=== PATIENT | male | born 1945 | race Caucasian/White ===

== ENCOUNTER 2020-10-27 07:57 | Day surgery (SDC) | payer MEDICARE, BC, OTHER ==
[2020-10-24 13:55] VITALS: BMI 25.0
[2020-10-27] MEDS ORDERED: Bupivacaine 0.25% HCL 30 ML VIAL ONE (10:06)
[2020-10-27] MEDS ORDERED: XYLOCAINE 2%-EPI 1:100,000 20 ML VIAL ONE (10:06)
[2020-10-27] MEDS ORDERED: Fentanyl 100 MCG/2 ML VIAL ONE (10:13)
[2020-10-27] MEDS ORDERED: Lidocaine 1% PF 5 ML VIAL ONE (10:29)
[2020-10-27] MEDS ORDERED: Ondansetron PF 4 MG/2 ML Vial ONE (10:29)
[2020-10-27] MEDS ORDERED: ePHEDrine 50 MG/ML VIAL ONE (10:29)
[2020-10-27] MEDS ORDERED: PROPOFOL 200 MG/20 ML VIAL ONE (10:29)
[2020-10-27] MEDS ORDERED: PHENYLEPHRINE-NS 100 MCG/ML 10 ML SYRINGE ONE (10:29)
--- NOTE | 2020-10-27 12:09 | OP ---
DATE OF PROCEDURE: 10/27/2020 PREOPERATIVE DIAGNOSIS: Right inguinal hernia. PROCEDURE PERFORMED: Right inguinal hernia repair with mesh. INDICATIONS: A 75-year-old male, who had a painful right inguinal hernia. FINDINGS: He had a small indirect inguinal hernia as well as a direct inguinal hernia. DESCRIPTION OF PROCEDURE: After informed consent was obtained, the patient was taken to the operating room, given general endotracheal anesthesia, placed in the supine position. His groin was prepped and draped in usual fashion. Local anesthesia was infiltrated subcutaneously and deep, and a transverse right inguinal incision was performed. Subcu divided sharply. The fascia external oblique was incised in direction of its fibers to the external ring. Spermatic cord was isolated with a Anthony drain. Cremasteric fibers were and a lipoma of the cord was dissected out and there was also a small hernia sac. The lipoma was divided between clamps and tied with a 3-0 Vicryl stick tie and retracted internally. The hernia sac was dissected out circumferentially and reduced. Then, the direct hernia was circumscribed and reduced. Reduction of both hernias was performed utilizing a PHS hernia system. The posterior layer was placed in the preperitoneal space, anterior was laid out, sutured to the pubic tubercle medially, laterally it was tucked under the external oblique fascia. A notch was cut out for the spermatic cord. Hemostasis was assured. The external oblique fascia closed over the cord with a running 3-0 Vicryl. Lyssa was closed with interrupted 3-0 Vicryl and the skin closed with a running subcuticular 4-0 Rapide. Steri-Strips applied. Sterile bandage applied. The patient tolerated the procedure well, transferred to Recovery in good condition. Sponge and needle count verified correct x2. Job ID: [id number]
[2020-10-27] MEDS ORDERED: HYDROcodone/Acetaminophen 5/325 mg Tablet ONE (12:51)
== END 2020-10-27 13:10 | disposition home or self-care (01) ==
LOC: SDC 07:57
PROVIDERS: ATTEND Surgery
PROC: 0YU50JZ Supplement Right Inguinal Region with Synthetic Substitute, Open Approach (ICD-10-PCS; principal; 2020-10-27)
DX: K40.90 Unilateral inguinal hernia, without obstruction or gangrene, not specified as recurrent (principal); D17.6 Benign lipomatous neoplasm of spermatic cord; I11.9 Hypertensive heart disease without heart failure; J45.909 Unspecified asthma, uncomplicated; Z87.891 Personal history of nicotine dependence; Z79.82 Long term (current) use of aspirin; Z79.899 Other long term (current) drug therapy; Z95.1 Presence of aortocoronary bypass graft
CPT/HCPCS: C1781; J2405; J2704; J3010; J3490; S0020

== ENCOUNTER 2021-11-16 13:25 | Outpatient (CLI) | payer MEDICARE, BC, OTHER ==
[2020-10-23 19:07] LABS: #Basophils 0.1 10x3/uL (0.0-0.2); #Eosinphils 0.3 10x3/uL (0.0-0.5); #Monocytes 0.6 10x3/uL (0.0-1.1); #Neutrophils 10.5 10x3/uL (1.5-8.4); %Basophils 0.6 % (0.0-2.0); %Eosinophils 1.9 % (0.0-6.0); %Lymphocytes 14.1 % (18.0-47.0); %Monocytes 4.1 % (0.0-10.0); Hemoglobin 12.8 g/dL (14.0-18.0); Mean Corpuscular Hemoglobin 30.2 PG (27.0-33.0); Mean Corpuscular Volume 91.5 fl (80.0-100.0); Mean Platelet Volume 9.7 fl (7.4-10.4); Platelet Count 229 10x3/uL (130-400); RBC Distribution Width 14.6 % (11.5-14.5); Red Blood Cell (RBC) Count 4.24 10x6/uL (4.40-5.80); White Blood Cell (WBC) Count 13.5 10x3/uL (4.5-11.0)
[2020-10-23 19:16] LABS: ALT (SGPT) 14 U/L (8-55); AST (SGOT) 17 U/L (5-34); Albumin 4.5 g/dL (3.4-4.8); Alkaline Phosphatase 90 U/L (40-110); Anion Gap 17 mmol/L (10-20); BUN (Urea Nitrogen) 19 mg/dL (8.4-25.7); Bilirubin, Total 0.6 mg/dL (0.2-1.2); Calc. Creatinine Clearance 0 mL/min (70-130); Calcium 9.6 mg/dL (7.8-10.44); Carbon Dioxide 23 mmol/L (23-31); Chloride 102 mmol/L (98-107); Globulin 2.6 g/dL (2.4-3.5); Glucose 82 mg/dL (83-110); Potassium 4.6 mmol/L (3.5-5.1); Protein, Total 7.1 g/dL (5.8-8.1); Sodium 137 mmol/L (136-145)
[2020-10-24 06:45] LABS: SARS-CoV-2 PCR by NAA Not Detected (NotDetected)
== END 2021-11-16 13:26 | disposition home or self-care (01) ==
LOC: RAD 13:25
PROVIDERS: ATTEND Internal Medicine
DX: R06.00 Dyspnea, unspecified (principal); R91.8 Other nonspecific abnormal finding of lung field; J98.4 Other disorders of lung
CPT/HCPCS: 80053; 85025; 93005; U0003; U0005; 71046; 93010

== ENCOUNTER 2023-03-07 13:04 | Outpatient (CLI) | payer MEDICARE, BC, OTHER | END 2023-03-07 13:05 | disposition home or self-care (01) | LOC: RAD 13:04 | PROVIDERS: ATTEND Internal Medicine | DX: J47.9 Bronchiectasis, uncomplicated (principal); R91.8 Other nonspecific abnormal finding of lung field | CPT/HCPCS: 71046 ==

== ENCOUNTER 2023-08-02 17:11 | Emergency (ER) | payer MEDICARE, BC ==
[2023-08-02] MEDS ORDERED: Ketorolac Tromethamine 30 MG/ML VIAL ONE (18:01)
[2023-08-02 18:24] LABS: Hematocrit 31.9 % (42.0-52.0); Hemoglobin 10.7 g/dL (14.0-18.0); Mean Corpuscular HGB CONC 33.5 g/dL (32.0-36.0); Mean Corpuscular Hemoglobin 27.2 pg (27.0-31.0); Mean Platelet Volume 9.7 fL (7.4-10.4); Platelet Count 274 10x3/uL (130-400); RBC Distribution Width 15.8 % (11.5-14.5); Red Blood Cell (RBC) Count 3.94 mill/uL (4.70-6.10); White Blood Cell (WBC) Count 48.3 10x3/uL (4.8-10.8)
[2023-08-02 18:30] LABS: Delete Auto Diff?? YES; Manual Diff?? YES
[2023-08-02 18:34] LABS: Bacteria/HPF None Seen HPF (None Seen); Bilirubin Negative (Negative); Blood, Urine 1+ (Negative); CAUTI Indications for Culture Dysuria,urgency,freq; Clarity Turbid (Clear); Glucose, Urine (Dipstick) Normal (Negative); Ketone, Urine Negative (Negative); Leukocyte Negative Leu/uL (Negative); Nitrite Negative (Negative); Protein, Urine (Dipstick) 100 mg/dL (Neg-Trace); RBC/HPF 0-3 HPF (0-3); Specific Gravity, Urine 1.016 (1.002-1.036); Squamous Epithelial 0-3 HPF (0-3); Urobilinogen 3 mg/dL (Less than 2)
[2023-08-02 18:37] LABS: Urine Culture Reflex No No
[2023-08-02 18:46] LABS: Chloride 97 mmol/L (98-107); Potassium 3.9 mmol/L (3.5-5.1); Sodium 127 mmol/L (136-145)
[2023-08-02 18:48] LABS: ALT (SGPT) 10 U/L (8-55); AST (SGOT) 13 U/L (5-34); Albumin 3.6 g/dL (3.4-4.8); Alkaline Phosphatase 87 U/L (40-110); BUN (Urea Nitrogen) 21 mg/dL (8.4-25.7); Bilirubin, Total 0.9 mg/dL (0.2-1.2); Calc. Creatinine Clearance 0 mL/min (70-130); Calcium 8.8 mg/dL (7.8-10.44); Carbon Dioxide 19 mmol/L (23-31); Estimated GFR 37; Globulin 2.8 g/dL (2.4-3.5); Glucose 134 mg/dL (83-110); Protein, Total 6.4 g/dL (5.8-8.1)
[2023-08-02 18:50] LABS: Anisocytosis SLIGHT = 6-15 cells HPF (0-5); Band 12 % (5-11); CellaVision Operator ID LAB.MJL; Hypochromia SLIGHT = 6-15 cells HPF (0-5); Lymphocytes 1 % (21-51); Neutrophil 87 % (42-75); Platelet Adequacy Comment Platelets Normal; Polychromasia MODERATE = 3-4 cells HPF (0-2); Total Cell Count 100; Vacuoles SLIGHT
[2023-08-02 19:17] LABS: Anion Gap 15 mmol/L (10-20)
[2023-08-02] MEDS ORDERED: Ipratropium/Albuterol 3 ML NEB ONE (19:46)
[2023-08-02] MEDS ORDERED: cefTRIAXone (ROCEPHIN) 1 GM VIAL ONE (20:31)
[2023-08-02] MEDS ORDERED: Azithromycin 500 MG VIAL ONE (20:31)
[2023-08-02 21:23] LABS: SARS-CoV-2 NAA Rapid Test Not Detected (NotDetected)
== END 2023-08-03 00:29 | disposition short-term general hospital (02) ==
LOC: ERS 17:11
DX: J18.9 Pneumonia, unspecified organism (principal); D72.829 Elevated white blood cell count, unspecified; I10 Essential (primary) hypertension; E78.5 Hyperlipidemia, unspecified; K21.9 Gastro-esophageal reflux disease without esophagitis; Z79.899 Other long term (current) drug therapy
CPT/HCPCS: 36415; 71045; 74176; 80053; 81001; 83605; 85025; 87040; 87086; 87149; J0456; J0696; J1885; J7620

== ENCOUNTER 2024-07-10 11:11 | Outpatient (CLI) | payer MEDICARE, BC, OTHER | END 2024-07-10 11:12 | disposition home or self-care (01) | LOC: RAD 11:11 | PROVIDERS: ATTEND Internal Medicine | DX: R06.00 Dyspnea, unspecified (principal); R91.8 Other nonspecific abnormal finding of lung field | CPT/HCPCS: 71046 ==

== ENCOUNTER 2024-07-25 10:43 | Inpatient (IN) | payer MEDICARE, OTHER ==
[~2024-07-25 10:43] MED LIST: Iopamidol-370 76% 500 ML MDV (1 ML CHARGE) ONE
[2024-07-25 11:30] LABS: Hemoglobin 8.7 g/dL (14.0-18.0); Mean Corpuscular HGB CONC 32.2 g/dL (32.0-36.0); Mean Corpuscular Hemoglobin 27.3 pg (27.0-31.0); Mean Corpuscular Volume 84.6 fL (78.0-98.0); Mean Platelet Volume 8.8 fL (7.4-10.4); Platelet Count 95 10x3/uL (130-400); RBC Distribution Width 15.5 % (11.5-14.5); Red Blood Cell (RBC) Count 3.19 mill/uL (4.70-6.10)
[2024-07-25 11:33] LABS: #Basophils Less than 0.03 10x3/uL (0.0-0.2); %Eosinophils 0.5 % (0.0-10.0); %Lymphocytes 36.3 % (21.0-51.0); %Neutrophils 49.8 % (42.0-75.0)
[2024-07-25 11:40] LABS: ALT (SGPT) 9 U/L (8-55); AST (SGOT) 15 U/L (5-34); Albumin 2.6 g/dL (3.4-4.8); Alkaline Phosphatase 76 U/L (40-110); Anion Gap 14 mmol/L (10-20); BUN (Urea Nitrogen) 15 mg/dL (8.4-25.7); Bilirubin, Total 0.4 mg/dL (0.2-1.2); Calc. Creatinine Clearance 0 mL/min (70-130); Calcium 8.5 mg/dL (7.8-10.44); Carbon Dioxide 20 mmol/L (23-31); Chloride 102 mmol/L (98-107); Estimated GFR 69; Globulin 3.8 g/dL (2.4-3.5); Glucose 131 mg/dL (83-110); Potassium 3.6 mmol/L (3.5-5.1); Protein, Total 6.4 g/dL (5.8-8.1); Sodium 132 mmol/L (136-145)
[2024-07-25 11:46] LABS: Troponin I Less than 0.010 ng/mL (< 0.028)
[2024-07-25 11:58] LABS: Band 7 % (5-11); Eosinophils 1 % (0-10); Lymphocytes 33 % (21-51); Monocytes 4 % (0-10); Neutrophil 49 % (42-75); Platelet Adequacy Comment Platelets Decreased; Polychromasia MODERATE = 3-4 cells HPF (0-2); Reactive Lymphocytes 7 % (0-10)
[2024-07-25] MEDS ORDERED: Cefepime 2 GM VIAL ONE (16:39)
[2024-07-25] MEDS ORDERED: Acetaminophen 500 MG TAB ONE (17:01)
[2024-07-25 17:34] LABS: Bacteria/HPF None Seen HPF (None Seen); Bilirubin Negative (Negative); Blood, Urine Negative (Negative); CAUTI Indications for Culture Acute Hematuria; Clarity Clear (Clear); Glucose, Urine (Dipstick) Normal (Negative); Ketone, Urine Negative (Negative); Leukocyte Negative Leu/uL (Negative); Nitrite Negative (Negative); Protein, Urine (Dipstick) 10 mg/dL (Neg-Trace); RBC/HPF 0-3 HPF (0-3); Specific Gravity, Urine 1.001 (1.002-1.036); Squamous Epithelial None Seen HPF (0-3); Urobilinogen Normal mg/dL (Less than 2); WBC/HPF None Seen HPF (0-3); pH, Urine 6.5 (5.0-9.0)
[2024-07-25 17:40] LABS: Urine Culture Reflex No No
[2024-07-25] MEDS ORDERED: Ondansetron PF 4 MG/2 ML Vial IVP PRN (17:45)
[2024-07-25] MEDS ORDERED: Ondansetron ODT 4 MG TAB PO PRN (17:45)
[2024-07-25] MEDS ORDERED: Acetaminophen 650 MG Suppository PR PRN (17:45)
[2024-07-25] MEDS ORDERED: Sodium Chloride 0.9% (5 ML) NEB NEB PRN (18:39)
[2024-07-25] MEDS ORDERED: Loratadine 10 MG TAB PO PRN (18:39)
[2024-07-25] MEDS ORDERED: SODIUM CHLORIDE FOR INHALATION INH PRN (18:41)
[2024-07-25] MEDS ORDERED: [UNRECOGNIZED DRUG - OTHER] INH PRN (18:41)
[2024-07-25 20:20] VITALS: BMI 20.5
[2024-07-25] MEDS: Ranolazine ER 500 MG TAB PO SCH (20:59)
[2024-07-25] MEDS: Isosorbide Mononitrate 60 MG ER.TAB PO SCH (20:59)
[2024-07-25] MEDS: Azithromycin 500 MG in Sodium Chloride 0.9% 250 ML 250 ML IVPB SCH (20:59)
[2024-07-25] MEDS: Montelukast Sodium 10 mg Tablet PO SCH (21:00)
[2024-07-25] MEDS: Docusate 100 MG CAP PO SCH (21:00)
[2024-07-25] MEDS: guaiFENesin/DM ER PO SCH (21:00)
[2024-07-25] MEDS: Rosuvastatin 20 MG TAB PO SCH (21:00)
[2024-07-25] MEDS: Mesalamine DR 400 mg Capsule PO SCH (21:00)
[2024-07-25] MEDS: traMADol HCl 50 MG TAB PO PRN (21:01)
[2024-07-25] MEDS: Acetaminophen 325 MG TAB PO PRN (21:24)
[2024-07-25] MEDS: Enoxaparin 80 MG (0.8 mL) SYRINGE SC SCH (21:30)
[2024-07-25] MEDS ORDERED: cefTRIAXone\\ROCEPHIN 1 GM in Sodium Chloride 0.9% 100 ML IVPB SCH (23:00)
[2024-07-26] MEDS: Albumin 25% 25 GM (100 mL) BOT IVPB SCH ×2 (00:20→06:08)
[2024-07-26 00:30] LABS: Hematocrit 20.4 % (42.0-52.0); Hemoglobin 6.7 g/dL (14.0-18.0); Mean Corpuscular HGB CONC 32.8 g/dL (32.0-36.0); Mean Corpuscular Hemoglobin 27.5 pg (27.0-31.0); Mean Corpuscular Volume 83.6 fL (78.0-98.0); Mean Platelet Volume 8.9 fL (7.4-10.4); Platelet Count 76 10x3/uL (130-400); RBC Distribution Width 15.5 % (11.5-14.5); Red Blood Cell (RBC) Count 2.44 mill/uL (4.70-6.10)
[2024-07-26 01:11] LABS: Band 5 % (5-11); Lymphocytes 9 % (21-51); Metamyelocyte 1 % (0-0); Monocytes 8 % (0-10); Neutrophil 72 % (42-75); Platelet Adequacy Comment Platelets Decreased; Polychromasia SLIGHT = 2-3 cells HPF (0-2); Smudge Cells 24.5 %
[2024-07-26 01:12] LABS: Reflex for Review?? YES
[2024-07-26 01:16] LABS: ALT (SGPT) 7 U/L (8-55); Albumin 2.1 g/dL (3.4-4.8); Alkaline Phosphatase 54 U/L (40-110); Anion Gap 13 mmol/L (10-20); BUN (Urea Nitrogen) 16 mg/dL (8.4-25.7); Bilirubin, Total 0.5 mg/dL (0.2-1.2); Calc. Creatinine Clearance 51 mL/min (70-130); Calcium 7.5 mg/dL (7.8-10.44); Carbon Dioxide 17 mmol/L (23-31); Chloride 106 mmol/L (98-107); Estimated GFR 64; Globulin 2.9 g/dL (2.4-3.5); Glucose 115 mg/dL (83-110); Magnesium 1.4 mg/dL (1.6-2.6); Potassium 3.5 mmol/L (3.5-5.1); Sodium 132 mmol/L (136-145)
[2024-07-26 01:17] LABS: Iron 52 ug/dL (65-175); Iron Binding Capacity, Total 141 mcg/dL (261-462)
[2024-07-26 01:34] LABS: INR-International Normal Ratio 1.4; Prothrombin Time 16.8 sec (12.0-14.7)
[2024-07-26 01:35] LABS: PTT 48.1 sec (22.9-36.1)
[2024-07-26 02:05] LABS: AST (SGOT) 13 U/L (5-34)
[2024-07-26] MEDS ORDERED: Electrolyte Replacement Protocol 1 EACH FS SCH (02:30)
[2024-07-26] MEDS: Vancomycin (BATCH) 2 GM in Premix 1 BAG IVPB SCH (04:04)
[2024-07-26 04:40] LABS: Legionella Urinary Ag Negative (Negative); Strep pneumo Urine Ag NEGATIVE (NEGATIVE)
[2024-07-26] MEDS: Cefepime 2 GM in Sodium Chloride 0.9% 100 ML IVPB SCH (05:23)
[2024-07-26] MEDS: Potassium Chloride 20 MEQ TAB PO SCH ×2 (05:39→06:49)
[2024-07-26] MEDS: Clindamycin/D5W 900 MG in Premix 1 BAG IVPB SCH (06:08)
[2024-07-26 06:29] LABS: Thyroid Stimulating Hormone 3.1 uIU/mL (0.35-4.94)
[2024-07-26 06:48] LABS: Hematocrit 22.9 % (42.0-52.0); Hemoglobin 7.4 g/dL (14.0-18.0)
[2024-07-26 07:17] LABS: Ferritin 731.69 ng/mL (22-322)
[2024-07-26] MEDS: Mometasone 100 MCG/Formoterol 5 MCG 120 PUFF INHALER INH SCH (08:48)
[2024-07-26] MEDS ORDERED: Enoxaparin 40 MG (0.4 mL) SYRINGE SC SCH (09:00)
[2024-07-26] MEDS: Magnesium Sulfate In Water 4 GM in Premix 1 BAG IVPB SCH ×2 (09:29→13:19)
[2024-07-26] MEDS: Communication Order-Pharmacy FS ONE (09:29)
[2024-07-26] MEDS: Doxycycline 100 MG in Sodium Chloride 0.9% 100 ML IVPB SCH (09:31)
[2024-07-26] MEDS: Pantoprazole DR 40 MG TAB PO SCH (09:32)
[2024-07-26] MEDS: Ketorolac Tromethamine 30 MG (1 mL) VIAL IVP PRN (09:32)
[2024-07-26] MEDS: Isosorbide Mononitrate 60 MG ER.TAB PO SCH (09:32)
[2024-07-26 12:36] VITALS: BMI 20.5
[2024-07-27 04:41] LABS: Hematocrit 25.5 % (42.0-52.0); Hemoglobin 8.5 g/dL (14.0-18.0); Mean Corpuscular HGB CONC 33.3 g/dL (32.0-36.0); Mean Corpuscular Hemoglobin 27.9 pg (27.0-31.0); Mean Corpuscular Volume 83.6 fL (78.0-98.0); Mean Platelet Volume 8.7 fL (7.4-10.4); Platelet Count 87 10x3/uL (130-400); RBC Distribution Width 15.7 % (11.5-14.5); Red Blood Cell (RBC) Count 3.05 mill/uL (4.70-6.10)
[2024-07-27 05:10] LABS: ALT (SGPT) 5 U/L (8-55); AST (SGOT) 15 U/L (5-34); Albumin 3.3 g/dL (3.4-4.8); Alkaline Phosphatase 66 U/L (40-110); Anion Gap 14 mmol/L (10-20); BUN (Urea Nitrogen) 14 mg/dL (8.4-25.7); Bilirubin, Total 0.6 mg/dL (0.2-1.2); Calc. Creatinine Clearance 58 mL/min (70-130); Calcium 8.4 mg/dL (7.8-10.44); Carbon Dioxide 16 mmol/L (23-31); Chloride 106 mmol/L (98-107); Estimated GFR 75; Globulin 3.1 g/dL (2.4-3.5); Glucose 92 mg/dL (83-110); Magnesium 2.1 mg/dL (1.6-2.6); Potassium 4.1 mmol/L (3.5-5.1); Protein, Total 6.4 g/dL (5.8-8.1); Sodium 132 mmol/L (136-145)
[2024-07-27 05:14] LABS: Band 5 % (5-11); Hypochromia SLIGHT = 6-15 cells HPF (0-5); Lymphocytes 14 % (21-51); Macrocytosis SLIGHT = 6-15 cells HPF (0-5); Monocytes 4 % (0-10); Neutrophil 59 % (42-75); Platelet Adequacy Comment Platelets Decreased; Polychromasia SLIGHT = 2-3 cells HPF (0-2); Promyelocytes 1 % (0-0); Reactive Lymphocytes 17 % (0-10)
[2024-07-27] MEDS: Ipratropium/Albuterol 3 ML NEB NEB PRN (09:10)
[2024-07-28 03:06] LABS: Hematocrit 23.5 % (42.0-52.0); Hemoglobin 7.6 g/dL (14.0-18.0); Mean Corpuscular HGB CONC 32.3 g/dL (32.0-36.0); Mean Corpuscular Hemoglobin 27.4 pg (27.0-31.0); Mean Corpuscular Volume 84.8 fL (78.0-98.0); Mean Platelet Volume 8.9 fL (7.4-10.4); Platelet Count 85 10x3/uL (130-400); Red Blood Cell (RBC) Count 2.77 mill/uL (4.70-6.10)
[2024-07-28 03:11] LABS: Anion Gap 13 mmol/L (10-20); BUN (Urea Nitrogen) 16 mg/dL (8.4-25.7); Calc. Creatinine Clearance 69 mL/min (70-130); Calcium 8.1 mg/dL (7.8-10.44); Carbon Dioxide 17 mmol/L (23-31); Chloride 104 mmol/L (98-107); Estimated GFR 88; Glucose 108 mg/dL (83-110); Potassium 4.1 mmol/L (3.5-5.1); Sodium 130 mmol/L (136-145)
[2024-07-28 04:13] LABS: Band 7 % (5-11); Hypochromia SLIGHT = 6-15 cells HPF (0-5); Lymphocytes 13 % (21-51); Macrocytosis SLIGHT = 6-15 cells HPF (0-5); Monocytes 9 % (0-10); Neutrophil 69 % (42-75); Platelet Adequacy Comment Platelets Decreased; Polychromasia SLIGHT = 2-3 cells HPF (0-2); Reactive Lymphocytes 3 % (0-10); Schistocytes SLIGHT = 2-5 cells HPF (0-1); Tear Drops SLIGHT = 2-5 cells HPF (0-1)
[2024-07-28] MEDS: Furosemide 40 MG (4 mL) VIAL SLOW IVP SCH (14:38)
[2024-07-28 16:28] LABS: Hematocrit 23.2 % (42.0-52.0); Hemoglobin 7.6 g/dL (14.0-18.0); Mean Corpuscular HGB CONC 32.8 g/dL (32.0-36.0); Mean Corpuscular Hemoglobin 27.7 pg (27.0-31.0); Mean Corpuscular Volume 84.7 fL (78.0-98.0); Mean Platelet Volume 8.6 fL (7.4-10.4); Platelet Count 95 10x3/uL (130-400); RBC Distribution Width 16.1 % (11.5-14.5); Red Blood Cell (RBC) Count 2.74 mill/uL (4.70-6.10)
[2024-07-28] MEDS: Melatonin 3 MG TAB PO PRN (21:30)
[2024-07-29 10:04] LABS: Anion Gap 15 mmol/L (10-20); BUN (Urea Nitrogen) 17 mg/dL (8.4-25.7); Calc. Creatinine Clearance 63 mL/min (70-130); Calcium 8.5 mg/dL (7.8-10.44); Carbon Dioxide 18 mmol/L (23-31); Chloride 99 mmol/L (98-107); Estimated GFR 83; Glucose 132 mg/dL (83-110); Hematocrit 25.1 % (42.0-52.0); Hemoglobin 8.3 g/dL (14.0-18.0); Mean Corpuscular HGB CONC 33.1 g/dL (32.0-36.0); Mean Corpuscular Hemoglobin 27.3 pg (27.0-31.0); Mean Corpuscular Volume 82.6 fL (78.0-98.0); Mean Platelet Volume 8.8 fL (7.4-10.4); Platelet Count 95 10x3/uL (130-400); Potassium 3.8 mmol/L (3.5-5.1); Red Blood Cell (RBC) Count 3.04 mill/uL (4.70-6.10); Sodium 128 mmol/L (136-145)
[2024-07-29 10:32] LABS: Band 3 % (5-11); Hypochromia SLIGHT = 6-15 cells HPF (0-5); Lymphocytes 29 % (21-51); Monocytes 11 % (0-10); Neutrophil 55 % (42-75); Platelet Adequacy Comment Platelets Decreased; Poikilocytosis SLIGHT = 6-15 cells HPF (0-5); Polychromasia SLIGHT = 2-3 cells HPF (0-2); Reactive Lymphocytes 2 % (0-10)
[2024-07-29] MEDS ORDERED: Albuterol 200 PUFF (6.7GM INHALER) INH PRN (13:55)
[2024-07-30 03:59] LABS: Hematocrit 23.7 % (42.0-52.0); Hemoglobin 7.8 g/dL (14.0-18.0); Mean Corpuscular HGB CONC 32.9 g/dL (32.0-36.0); Mean Corpuscular Hemoglobin 27.3 pg (27.0-31.0); Mean Corpuscular Volume 82.9 fL (78.0-98.0); Mean Platelet Volume 8.6 fL (7.4-10.4); Platelet Count 100 10x3/uL (130-400); RBC Distribution Width 16.3 % (11.5-14.5); Red Blood Cell (RBC) Count 2.86 mill/uL (4.70-6.10)
[2024-07-30 04:16] LABS: Anion Gap 14 mmol/L (10-20); BUN (Urea Nitrogen) 17 mg/dL (8.4-25.7); Calc. Creatinine Clearance 60 mL/min (70-130); Calcium 8.7 mg/dL (7.8-10.44); Carbon Dioxide 20 mmol/L (23-31); Chloride 99 mmol/L (98-107); Estimated GFR 78; Glucose 88 mg/dL (83-110); Magnesium 1.6 mg/dL (1.6-2.6); Potassium 4.3 mmol/L (3.5-5.1); Sodium 129 mmol/L (136-145)
[2024-07-30 04:38] LABS: Anisocytosis SLIGHT = 6-15 cells HPF (0-5); Blast 2 % (0-0); Eosinophils 1 % (0-10); Lymphocytes 14 % (21-51); Monocytes 2 % (0-10); Neutrophil 50 % (42-75); Nucleated RBC (Manual Ct) 1 % (0); Platelet Adequacy Comment Platelets Decreased; Polychromasia SLIGHT = 2-3 cells HPF (0-2); Promyelocytes 1 % (0-0); Reactive Lymphocytes 12 % (0-10); Reflex for Review?? YES
[2024-07-30] MEDS: Magnesium 2 GM/50 ML(in water) 2 GM in Premix 1 BAG IVPB SCH ×2 (10:00→13:11)
[2024-07-31 04:21] LABS: Hematocrit 24.5 % (42.0-52.0); Hemoglobin 8.1 g/dL (14.0-18.0); Mean Corpuscular HGB CONC 33.1 g/dL (32.0-36.0); Mean Corpuscular Hemoglobin 27.6 pg (27.0-31.0); Mean Corpuscular Volume 83.3 fL (78.0-98.0); Mean Platelet Volume 9.2 fL (7.4-10.4); Platelet Count 119 10x3/uL (130-400); RBC Distribution Width 16.3 % (11.5-14.5); Red Blood Cell (RBC) Count 2.94 mill/uL (4.70-6.10)
[2024-07-31 04:42] LABS: Anion Gap 12 mmol/L (10-20); BUN (Urea Nitrogen) 16 mg/dL (8.4-25.7); Calc. Creatinine Clearance 61 mL/min (70-130); Calcium 8.9 mg/dL (7.8-10.44); Carbon Dioxide 20 mmol/L (23-31); Chloride 100 mmol/L (98-107); Estimated GFR 79; Glucose 82 mg/dL (83-110); Magnesium 1.7 mg/dL (1.6-2.6); Potassium 4.2 mmol/L (3.5-5.1); Sodium 128 mmol/L (136-145)
[2024-07-31] MEDS: Benzonatate 100 MG CAP PO PRN (05:41)
[2024-07-31 08:58] LABS: Band 3 % (5-11); Hypersegmented Neutrophil SLIGHT (None Seen); Lymphocytes 29 % (21-51); Metamyelocyte 1 % (0-0); Neutrophil 39 % (42-75); Platelet Adequacy Comment Platelets Decreased; Polychromasia MODERATE = 3-4 cells HPF (0-2); Reactive Lymphocytes 6 % (0-10); Smudge Cells 4.9 %
[2024-07-31] MEDS: Magnesium 2 GM/50 ML(in water) 2 GM in Premix 1 BAG IVPB SCH (12:44)
[2024-07-31] MEDS: Bisacodyl 10 MG SUPP PR PRN (12:44)
[2024-07-31] MEDS: Senokot S 8.6-50 MG TAB PO SCH (20:38)
[2024-07-31] MEDS: Doxycycline 100 MG CAP PO SCH (20:38)
[2024-08-01 04:31] LABS: Hematocrit 23.2 % (42.0-52.0); Hemoglobin 7.6 g/dL (14.0-18.0); Mean Corpuscular HGB CONC 32.8 g/dL (32.0-36.0); Mean Corpuscular Hemoglobin 27.1 pg (27.0-31.0); Mean Corpuscular Volume 82.9 fL (78.0-98.0); Mean Platelet Volume 8.6 fL (7.4-10.4); Platelet Count 120 10x3/uL (130-400); RBC Distribution Width 16.2 % (11.5-14.5)
[2024-08-01 04:38] LABS: Anion Gap 11 mmol/L (10-20); BUN (Urea Nitrogen) 20 mg/dL (8.4-25.7); Calc. Creatinine Clearance 54 mL/min (70-130); Calcium 8.9 mg/dL (7.8-10.44); Carbon Dioxide 20 mmol/L (23-31); Chloride 99 mmol/L (98-107); Estimated GFR 68; Glucose 80 mg/dL (83-110); Magnesium 1.8 mg/dL (1.6-2.6); Potassium 4.3 mmol/L (3.5-5.1); Sodium 126 mmol/L (136-145)
[2024-08-01 06:40] LABS: Band 5 % (5-11); Blast 11 % (0-0); Eosinophils 1 % (0-10); Lymphocytes 27 % (21-51); Microcytosis SLIGHT = 6-15 cells HPF (0-5); Neutrophil 44 % (42-75); Platelet Adequacy Comment Platelets Decreased; Polychromasia SLIGHT = 2-3 cells HPF (0-2); Promyelocytes 1 % (0-0); Reactive Lymphocytes 11 % (0-10); Smudge Cells 29.5 %
[2024-08-01] MEDS: Magnesium 2 GM/50 ML(in water) 2 GM in Premix 1 BAG IVPB SCH (09:14)
[2024-08-01] MEDS: Sodium Chloride 0.9% 500 ML IV SCH (09:18)
[2024-08-01 14:42] LABS: Anion Gap 13 mmol/L (10-20); BUN (Urea Nitrogen) 19 mg/dL (8.4-25.7); Calc. Creatinine Clearance 55 mL/min (70-130); Carbon Dioxide 19 mmol/L (23-31); Chloride 97 mmol/L (98-107); Estimated GFR 69; Glucose 83 mg/dL (83-110); Potassium 4.2 mmol/L (3.5-5.1); Sodium 125 mmol/L (136-145)
[2024-08-02 04:29] LABS: Hematocrit 22.8 % (42.0-52.0); Hemoglobin 7.6 g/dL (14.0-18.0); Mean Corpuscular HGB CONC 33.3 g/dL (32.0-36.0); Mean Corpuscular Hemoglobin 27.4 pg (27.0-31.0); Mean Corpuscular Volume 82.3 fL (78.0-98.0); Mean Platelet Volume 8.8 fL (7.4-10.4); Platelet Count 115 10x3/uL (130-400); RBC Distribution Width 16.2 % (11.5-14.5); Red Blood Cell (RBC) Count 2.77 mill/uL (4.70-6.10)
[2024-08-02 04:32] LABS: Anion Gap 12 mmol/L (10-20); BUN (Urea Nitrogen) 22 mg/dL (8.4-25.7); Calc. Creatinine Clearance 52 mL/min (70-130); Calcium 8.5 mg/dL (7.8-10.44); Carbon Dioxide 18 mmol/L (23-31); Chloride 98 mmol/L (98-107); Estimated GFR 66; Glucose 79 mg/dL (83-110); Magnesium 1.8 mg/dL (1.6-2.6); Potassium 4.2 mmol/L (3.5-5.1); Sodium 124 mmol/L (136-145)
[2024-08-02 04:58] LABS: Band 3 % (5-11); Blast 4 % (0-0); Eosinophils 1 % (0-10); Hypochromia SLIGHT = 6-15 cells HPF (0-5); Lymphocytes 27 % (21-51); Metamyelocyte 2 % (0-0); Microcytosis SLIGHT = 6-15 cells HPF (0-5); Monocytes 2 % (0-10); Neutrophil 39 % (42-75); Other Cell Types 7.5; Platelet Adequacy Comment Platelets Decreased; Polychromasia SLIGHT = 2-3 cells HPF (0-2); Reactive Lymphocytes 15 % (0-10); Target Cells SLIGHT = 2-5 cells HPF (0-1); Tear Drops SLIGHT = 2-5 cells HPF (0-1)
[2024-08-02] MEDS: Magnesium 2 GM/50 ML(in water) 2 GM in Premix 1 BAG IVPB SCH (06:11)
[2024-08-02] MEDS ORDERED: Mesalamine DR 400 mg Capsule PO SCH (09:00)
[2024-08-02] MEDS: Sodium Chloride 1 GM TAB PO SCH (09:58)
[2024-08-02] MEDS: Mesalamine DR 400 mg Capsule PO SCH (09:59)
[2024-08-02 16:22] LABS: Anion Gap 13 mmol/L (10-20); BUN (Urea Nitrogen) 25 mg/dL (8.4-25.7); Calc. Creatinine Clearance 51 mL/min (70-130); Calcium 8.4 mg/dL (7.8-10.44); Carbon Dioxide 17 mmol/L (23-31); Chloride 96 mmol/L (98-107); Estimated GFR 64; Glucose 83 mg/dL (83-110); Potassium 4.3 mmol/L (3.5-5.1); Sodium 122 mmol/L (136-145)
[2024-08-02] MEDS: SODIUM CHLORIDE IV SCH (18:51)
[2024-08-02] MEDS: [UNRECOGNIZED DRUG - OTHER] IV SCH (18:51)
[2024-08-03 00:23] LABS: Anion Gap 12 mmol/L (10-20); BUN (Urea Nitrogen) 25 mg/dL (8.4-25.7); Calc. Creatinine Clearance 56 mL/min (70-130); Calcium 8.2 mg/dL (7.8-10.44); Carbon Dioxide 16 mmol/L (23-31); Chloride 99 mmol/L (98-107); Estimated GFR 71; Glucose 82 mg/dL (83-110); Potassium 3.9 mmol/L (3.5-5.1); Sodium 123 mmol/L (136-145)
[2024-08-03 05:00] LABS: Hematocrit 22.1 % (42.0-52.0); Hemoglobin 7.3 g/dL (14.0-18.0); Mean Corpuscular Hemoglobin 27.2 pg (27.0-31.0); Mean Corpuscular Volume 82.5 fL (78.0-98.0); Mean Platelet Volume 8.6 fL (7.4-10.4); Platelet Count 95 10x3/uL (130-400); RBC Distribution Width 16.3 % (11.5-14.5); Red Blood Cell (RBC) Count 2.68 mill/uL (4.70-6.10)
[2024-08-03 05:05] LABS: Anion Gap 11 mmol/L (10-20); BUN (Urea Nitrogen) 24 mg/dL (8.4-25.7); Calc. Creatinine Clearance 50 mL/min (70-130); Carbon Dioxide 17 mmol/L (23-31); Chloride 100 mmol/L (98-107); Estimated GFR 63; Glucose 71 mg/dL (83-110); Magnesium 1.9 mg/dL (1.6-2.6); Potassium 3.9 mmol/L (3.5-5.1); Sodium 124 mmol/L (136-145)
[2024-08-03 05:54] LABS: Anisocytosis SLIGHT = 6-15 cells HPF (0-5); Blast 16 % (0-0); Hypochromia MODERATE=16-30 cells HPF (0-5); Lymphocytes 38 % (21-51); Microcytosis SLIGHT = 6-15 cells HPF (0-5); Monocytes 9 % (0-10); Neutrophil 34 % (42-75); Ovalocytes SLIGHT = 2-5 cells HPF (0-1); Platelet Adequacy Comment Platelets Decreased; Polychromasia SLIGHT = 2-3 cells HPF (0-2); Reactive Lymphocytes 4 % (0-10); Smudge Cells 30.1 %
[2024-08-03] MEDS: Magnesium 2 GM/50 ML(in water) 2 GM in Premix 1 BAG IVPB SCH (09:30)
[2024-08-03] MEDS ORDERED: oxyCODONE 5 MG TAB PO PRN (12:27)
[2024-08-03] MEDS: oxyCODONE 5 MG TAB PO PRN (12:53)
[2024-08-03] MEDS ORDERED: Morphine 2 MG/ML VIAL SLOW IVP PRN (14:31)
[2024-08-03 16:12] VITALS: TEMP 98.1
[2024-08-03 17:25] VITALS: BP 173/75
== END 2024-08-03 20:01 | disposition hospice, home (50) | DRG 193 ==
LOC: ERS 10:43 → 2NO 18:25
PROVIDERS: ADMIT Internal Medicine; ATTEND Student in an Organized Health Care Education/Training Program
PROC: 30233N1 Transfusion of Nonautologous Red Blood Cells into Peripheral Vein, Percutaneous Approach (ICD-10-PCS; principal; 2024-07-26)
DX: J18.9 Pneumonia, unspecified organism (principal); J96.01 Acute respiratory failure with hypoxia; J47.1 Bronchiectasis with (acute) exacerbation; E44.0 Moderate protein-calorie malnutrition; J47.0 Bronchiectasis with acute lower respiratory infection; C92.00 Acute myeloblastic leukemia, not having achieved remission; E22.2 Syndrome of inappropriate secretion of antidiuretic hormone; Z51.5 Encounter for palliative care; Z66 Do not resuscitate; R53.81 Other malaise; I25.10 Atherosclerotic heart disease of native coronary artery without angina pectoris; E78.5 Hyperlipidemia, unspecified; E83.42 Hypomagnesemia; D63.0 Anemia in neoplastic disease; K21.9 Gastro-esophageal reflux disease without esophagitis; I12.9 Hypertensive chronic kidney disease with stage 1 through stage 4 chronic kidney disease, or unspecified chronic kidney disease; N18.9 Chronic kidney disease, unspecified; I48.0 Paroxysmal atrial fibrillation; D69.59 Other secondary thrombocytopenia; I35.0 Nonrheumatic aortic (valve) stenosis; M81.0 Age-related osteoporosis without current pathological fracture; Z68.20 Body mass index [BMI] 20.0-20.9, adult; Z88.8 Allergy status to other drugs, medicaments and biological substances; Z95.1 Presence of aortocoronary bypass graft; Z87.891 Personal history of nicotine dependence; Z79.899 Other long term (current) drug therapy
CPT/HCPCS: 36415; 36416; 36430; 71045; 71260; 80048; 80053; 81001; 82533; 82728; 83540; 83550; 83605; 83735; 83880; 83930; 83935; 84145; 84300; 84443; 84484; 84550; 85025; 85046; 85060; 85610; 85730; 86850; 86900; 86901; 87040; 87070; 87205; 87428; 87449; 87899; 88184; 93005; 93010; 93306; 94640; 94664; 94760; 96365; 96366; 96367; A4217; J0456; J0692; J1650; J1885; J1940; J3370; J3475; J3490; J7030; J7050; J7620; P9016; P9047; Q9967